=== PATIENT | female | born 1975 | race Hispanic/Latino ===

== ENCOUNTER 2020-10-15 12:08 | Emergency (ER) | payer MEDICAID, SELFPAY ==
[2020-10-15] MEDS ORDERED: Ondansetron ODT 4 MG TAB ONE (13:20)
[2020-10-15] MEDS ORDERED: Ketorolac Tromethamine 30 MG/ML VIAL ONE (13:20)
[2020-10-16 01:45] LABS: SARS-CoV-2 PCR by NAA DETECTED (NotDetected)
== END 2020-10-15 13:45 | disposition home or self-care (01) ==
LOC: ERS 12:08
DX: J06.9 Acute upper respiratory infection, unspecified (principal); L20.9 Atopic dermatitis, unspecified; Z20.822 Contact with and (suspected) exposure to COVID-19
CPT/HCPCS: 96372; 99283; J1885; Q0162; U0003; U0005

== ENCOUNTER 2023-10-22 17:40 | Emergency (ER) | payer SELFPAY | END 2023-10-22 20:22 | disposition home or self-care (01) | LOC: ERS 17:40 | DX: L30.9 Dermatitis, unspecified (principal) | CPT/HCPCS: 99282 ==